=== PATIENT | female | born 1960 | race Caucasian/White ===

== ENCOUNTER 2018-05-16 11:00 | Emergency (ER) | payer BC ==
[~2018-05-16] VITALS: Ht 158.8 cm; Wt 70.0 kg
[~2018-05-16 11:00] MED LIST: MEDDOSEPAK PO
[2018-05-16] MEDS ORDERED: CEPHALEXIN500 M1 PO (11:41)
[2018-05-16] MEDS ORDERED: BACTRIM DS1 TAB PO (11:41)
[2018-05-16 12:00] VITALS: BP 126/80
== END 2018-05-16 12:00 | disposition home or self-care (01) | DRG 761 ==
LOC: ED 11:00
PROC: 0U9LXZZ Drainage of Vestibular Gland, External Approach (ICD-10-PCS; principal; 2018-05-16)
DX: N75.0 Cyst of Bartholin's gland (principal); F03.90 Unspecified dementia, unspecified severity, without behavioral disturbance, psychotic disturbance, mood disturbance, and anxiety; F17.210 Nicotine dependence, cigarettes, uncomplicated; B95.61 Methicillin susceptible Staphylococcus aureus infection as the cause of diseases classified elsewhere